=== PATIENT | female | born 1935 | race Caucasian/White ===

== ENCOUNTER 2016-03-06 18:54 | Emergency (ER) | payer OTHER ==
[2016-03-06 19:08] VITALS: TEMP 97.9
--- NOTE | 2016-03-06 19:09 | CPEKG ---
Heart Rate: 61 RR Interval: 984 P-R Interval: 200 QRSD Interval: 76 QT Interval: 392 QTC Interval: 395 P Balm: -6 QRS Balm: -3 T Wave Balm: 46 EKG Severity - NORMAL ECG - EKG Impression: SINUS RHYTHM Electronically Signed By: Mahendra Walker 06-Mar-2016 21:45:01
--- NOTE | 2016-03-06 19:10 | UCPHY ---
H & P Time Seen by Provider: 03/06/16 19:09 Patient Type: Established HPI/ROS: Chief complaint. chest pain HPI. 80-year-old female with chest discomfort for 3-4 days it comes and goes. It is described as anterior band across the chest and described as heaviness. No radiation. No exacerbating or relieving factors. No shortness of breath. Last night in the middle night she got up to the bathroom in both her legs would not move. She does not think her arms were involved or speech was involved. Both legs are normal today and she walked a mi on the treadmill. She has not had similar leg symptoms before. She has had occasional previous chest discomfort like this. The patient has chronic low back pain but it is not new or different. She denies any bowel or bladder symptoms other than constipation which is chronic ROS Constitutional. no fever/chills, no weakness Eyes. no problems with vision ENT. no sore throat, no nasal drainage Cardiovascular. Chest pain Respiratory. no shortness of breath, no cough Abdominal. no abdominal pain, no nausea/vomiting, no diarrhea . no problems urinating MS. no calf pain/swelling, no neck/back pain, no joint pain Skin. no rash Lymph. no swollen glands Neuro. Legs would not move last night Past Medical/Surgical History: Past medical history is significant for heart murmur, hypertension, dyslipidemia , depression Social History: , nonsmoker, no alcohol Smoking Status: Never smoked Physical Exam: General Appearance: Alert well-developed female mild distress vital signs are stable Eyes: Pupils equal and round no pallor or injection. ENT, Mouth: Mucous membranes are moist. Respiratory: There are no retractions, lungs are clear to auscultation. Cardiovascular: Regular rate and rhythm. Gastrointestinal: Abdomen is soft and nontender, no masses, bowel sounds normal. Neurological: Awake and alert, sensory and motor exams grossly normal. Speech is normal. Cranial nerves are normal. There is no pronator drift. Finger-to- nose [id number] are intact bilaterally. There is no paresthesias. Skin: Warm and dry, no rashes. Musculoskeletal: Neck is supple nontender. Extremities symmetrical, full range of motion. Psychiatric: Patient is oriented X 3, there is no agitation. 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 There is left axis deviation. QRS is otherwise normal there is no significant ST elevation or depression. There is no arrhythmia. The rate is 61 Procedures: IV normal saline, monitor ED Course/Re-evaluation: Re-evaluation 8:50 p.m.--patient is stable. The patient, her daughter, and I discussed treatment plan including recommendation for admission and further evaluation. Expressed understanding and agreement. They would like to be [facility] to [facility] as closer to home. I consulted and discussed the case with hospitalist Dr. Henson at [facility]. He accepts admission. EMTALA form is completed. Differential Diagnosis: I considered CVA, cauda equina syndrome, acute coronary syndrome, pneumonia - Data Points Laboratory Results: Laboratory Results 03/06/16 19:10 03/06/16 19:10 03/06/16 19:10 WBC 9.16 10^3/uL (3.80-9.50) RBC 5.00 10^6/uL (4.18-5.33) Hgb 15.4 g/dL (12.6-16.3) Hct 45.9 % (38.0-47.0) MCV 91.8 fL (81.5-99.8) MCH 30.8 pg (27.9-34.1) MCHC 33.6 g/dL (32.4-36.7) RDW 13.8 % (11.5-15.2) Plt Count 298 10^3/uL (150-400) MPV 9.4 fL (8.7-11.7) Neut % (Auto) 63.0 % (39.3-74.2) Lymph % (Auto) 23.4 % (15.0-45.0) [place] % (Auto) 9.3 % (4.5-13.0) Eos % (Auto) 3.3 % (0.6-7.6) Baso % (Auto) 0.8 % (0.3-1.7) Nucleat RBC Rel Count 0.0 % (0.0-0.2) Absolute Neuts (auto) 5.78 10^3/uL (1.70-6.50) Absolute Lymphs (auto) 2.14 10^3/uL (1.00-3.00) Absolute Monos (auto) 0.85 H 10^3/uL (0.30-0.80) Absolute Eos (auto) 0.30 10^3/uL (0.03-0.40) Absolute Basos (auto) 0.07 10^3/uL (0.02-0.10) Absolute Nucleated RBC 0.00 10^3/uL (0-0.01) Immature Gran % 0.2 % (0.0-1.1) Immature Gran # 0.02 10^3/uL (0.00-0.10) Sodium 137 mEq/L (134-144) Potassium 4.4 mEq/L (3.5-5.2) Chloride 103 mEq/L (97-110) Carbon Dioxide 26 mEq/l (22-31) Anion Gap 8 mEq/L (8-16) BUN 10 mg/dL (7-23) Creatinine 0.6 mg/dL (0.6-1.0) Estimated GFR > 60 Glucose 86 mg/dL (70-100) Calcium 10.2 mg/dL (8.5-10.4) Troponin I < 0.012 ng/mL (0-0.034) NT-Pro-B Natriuret Pep 104 pg/mL (0-450) Departure - Departure Disposition: Acute Care Hospital Not [facility] Clinical Impression: Bilateral leg weakness Chest pain Qualifiers: Chest pain type: unspecified Qualifier Code: (R07.9) Chest pain, unspecified Condition: Fair - PQRS PQRS Measurement: 134: Depression screening and followup, PRIME MD-PHQ2 (12 years and older) Over the last 2 weeks, how often have you been bothered by any of the following problems? 1. Feeling down, depressed, or hopeless? 2. Little interest or pleasure in doing things? Patient answered no to both 1 and 2 130: Documentation of medications. Reviewed all patient medications, doses, route and frequency. 226: Do you smoke? No. 47: 65 and older: Advanced care planning. Patient has advanced directive.
[2016-03-06 19:24] LABS: % IMMATURE GRANULYOCYTES 0.2 % (0.0-1.1); ABSOLUTE IMMATURE GRANULOCYTES 0.02 10^3/uL (0.00-0.10); ADD DIFF? NO; ADD MORPH? NO; ADD SCAN? NO; ATYPICAL LYMPHOCYTE FLAG 0 (0-99); FRAGMENT RBC FLAG 0 (0-99); HEMATOCRIT 45.9 % (38.0-47.0); HEMOGLOBIN 15.4 g/dL (12.6-16.3); LEFT SHIFT FLG 0 (0-99); LIPEMIA HEMOLYSIS FLAG 80 (0-99); MEAN CELL HEMOGLOBIN 30.8 pg (27.9-34.1); MEAN CELL HEMOGLOBIN CONCENTR. 33.6 g/dL (32.4-36.7); MEAN CELL VOLUME 91.8 fL (81.5-99.8); MEAN PLATELET VOLUME 9.4 fL (8.7-11.7); PLATELET CLUMPS FLAG 10 (0-99); PLATELET COUNT 298 10^3/uL (150-400); RED CELL DISTRIBUTION WIDTH 13.8 % (11.5-15.2)
[2016-03-06 19:35] VITALS: RESP 16
[2016-03-06 19:35] LABS: ANION GAP 8 mEq/L (8-16); CALCIUM 10.2 mg/dL (8.5-10.4); CARBON DIOXIDE 26 mEq/l (22-31); CHLORIDE 103 mEq/L (97-110); CREATININE 0.6 mg/dL (0.6-1.0); GLOMERULAR FILTRATION RATE > 60; GLUCOSE 86 mg/dL (70-100); POTASSIUM 4.4 mEq/L (3.5-5.2); SODIUM 137 mEq/L (134-144)
[2016-03-06 19:49] LABS: TROPONIN I < 0.012 ng/mL (0-0.034)
--- NOTE | 2016-03-06 19:50 | DX ---
Portable Frontal View of the Chest, at 7:19 p.m. Clinical History: 80-year-old female with chest pain for 3 days. Comparison Study: None. Findings: Telemetry monitoring lead lines are noted. The cardiac size is at the upper limits of barbara l. There is mild eventration of the hemidiaphragms. Air-filled splenic flexure is noted near the left hemidiaphragm. There is no focal infiltrate, pleural effusion, peripheral interstitial edema, or pne umothorax. The trachea is midline. There are degenerative features of the spine. Impression: No acute localizing features. When clinically feasible, PA and lateral views in the department may be of benefit.
[2016-03-06 22:21] VITALS: BP 154/69; PULSE 65; O2SAT 94
== END 2016-03-06 22:56 | disposition short-term general hospital (02) ==
LOC: CED 18:54
DX: R07.9 Chest pain, unspecified (principal); R53.1 Weakness; I10 Essential (primary) hypertension; E78.5 Hyperlipidemia, unspecified; R01.1 Cardiac murmur, unspecified
CPT/HCPCS: 71010; 93005; G0463; 80048-PO; 83880-PO; 84484-PO; 85025-PO; 93010-PO; 99215-PO